=== PATIENT | male | born 1985 | race Caucasian/White ===

== ENCOUNTER 2018-12-01 19:55 | Emergency (ER) | payer OTHER, MEDICAID, SELFPAY ==
[2018-12-01 19:59] VITALS: BP 121/80; PULSE 92; RESP 22; TEMP 35.7; O2SAT 97
--- NOTE | 2018-12-02 03:53 | ED.BACK ---
HPI - Back Pain/Injury General Chief Complaint: Back Pain/Injury Stated Complaint: BACK PAIN History of Present Illness HPI Narrative: Patient left without being seen. Related Data Allergies Allergy/AdvReac Type Severity Reaction Status Date / Time bee venom protein (honey bee) Allergy Verified 12/01/18 20:04 PFSH Social History Smoking Status: Current every day smoker Social History Smoking Status: Current every day smoker Exam Initial Vital Signs Initial Vital Signs: Vital Signs Temperature 96.3 F L 12/01/18 19:59 Pulse Rate 92 H 12/01/18 19:59 Respiratory Rate 22 12/01/18 19:59 Blood Pressure 121/80 12/01/18 19:59 Pulse Oximetry 97 12/01/18 19:59 Course Vital Signs - 8 hr 12/01/18 19:59 Temperature 96.3 F L Pulse Rate 92 H Respiratory Rate 22 Blood Pressure 121/80 Pulse Oximetry 97 Discharge Plan Departure Patient Disposition: Home Clinical Impression: Patient left after triage Discharge Date/Time: 12/01/18 23:20 Interventions: ED Discharge Assessment Last Done: 12/01/18 23:22
== END 2018-12-01 23:20 | disposition home or self-care (01) ==
PROVIDERS: Emergency Provider Emergency Medicine
DX: M54.9 Dorsalgia, unspecified (principal)
CPT/HCPCS: 99282

== ENCOUNTER 2018-12-02 07:57 | Emergency (ER) | payer OTHER, MEDICAID, SELFPAY ==
--- NOTE | 2018-12-02 07:59 | ED_ITS ---
HPI - Back Pain/Injury General Chief Complaint: Back Pain/Injury Stated Complaint: back issue Time Seen by Provider: 12/02/18 07:58 Source: patient Mode of arrival: ambulatory Limitations: no limitations History of Present Illness HPI Narrative: 33-year-old male who was here in the emergency department last evening but left without being seen here for evaluation of 1.5 years of midback pain. Patient states he does not remember specific incident where his pain started however he thinks it was when he was helping a friend move. He has never been evaluated in the past for it. He states that it is in his mid back. Hurts when he moves and bends over. Has not been doing anything for this. Is here because he states that it is affecting his work. Related Data Allergies Allergy/AdvReac Type Severity Reaction Status Date / Time bee venom protein (honey bee) Allergy Verified 12/02/18 08:03 Review of Systems Constitutional Denies fever(s) and Denies headache(s) ENT Ears, Nose, Mouth, and Throat: Denies headache(s) and Denies disequilibrium Cardiovascular Denies chest pain and Denies dyspnea Respiratory Denies dyspnea Gastrointestinal Gastrointestinal: Denies abdominal pain, Denies nausea and Denies vomiting Genitourinary Denies dysuria Musculoskeletal Reports back pain, Denies myalgias, Denies arthralgias and Denies tingling Integumentary/Breasts Denies rash Neurologic Denies headache(s), Denies radicular pain, Denies tingling, Denies tremor(s) and Denies disequilibrium Hematologic/Lymphatic Denies easy bleeding and Denies easy bruising FORMERLY [facility] Medical History Patient denies medical problems (Acute) Social History Smoking Status: Current every day smoker Social History Smoking Status: Current every day smoker Exam Initial Vital Signs Initial Vital Signs: Vital Signs Temperature 98.6 F 12/02/18 08:03 Pulse Rate 99 H 12/02/18 08:03 Respiratory Rate 15 12/02/18 08:03 Blood Pressure 138/92 H 12/02/18 08:03 Pulse Oximetry 93 12/02/18 08:03 Const General: cooperative, comfortable, well developed, well groomed and No acute distress Orientation: alert, awake and oriented x3 HENMT Head: normal to inspection and normocephalic Resp Effort & Inspection: normal respiratory effort Auscultation: clear to auscultation bilaterally Cardio Rate: regular rate Rhythm: regular rhythm Back/Spine/Pelvis Cervical Spine: No cervical spinal tenderness Thoracic/Lumbar Spine: paraspinal tenderness, thoracic spinal tenderness and No lumbar spinal tenderness Skin Lesions: no lesions Rashes: no rashes Neuro General: alert and awake Cognition: normal cognition Speech: speech normal Gait: normal gait Extrem General: normal to inspection and capillary refill normal Psych Appearance: grossly normal and well kempt Course Orders Ordered: Discontinued Medications Ketorolac Tromethamine (Toradol) 30 mg IM NOW ONE Stop: 12/02/18 08:14 Vital Signs - 8 hr 12/02/18 08:03 Temperature 98.6 F Pulse Rate 99 H Respiratory Rate 15 Blood Pressure 138/92 H Pulse Oximetry 93 MDM - Back Pain/Injury MDM Narrative Medical decision making narrative: Patient has had 1.5 years of thoracic back pain which he has not done anything for prior to this. Low suspicion for fracture. It is thoracic area. Suspect musculoskeletal. He was given a shot of Toradol here in the ER. He was also given the phone number for the health client resource specialist to help him establish a primary provider. The to discuss the use of anti-inflammatories. No indication for radiologic studies. Patient expressed understanding and agreement Discharge Plan Departure Patient Disposition: Home Clinical Impression: Thoracic back pain Qualifiers: Chronicity: chronic Back pain laterality: bilateral Qualified Code(s): M54.6 - Pain in thoracic spine Instructions: DI for Thoracic Back Pain Activity Restrictions/Additional Instructions: I recommend you contact the health client resource specialist here at the hospital at [phone]. They can help you with establishing a primary provider which can help with further referral such as physical therapy or any other advanced imaging such as an MRI. Continue to use anti-inflammatories such as Motrin or Naprosyn. You can also use Tylenol. Also recommend stretching you can also use heat and ice. Stand Alone Forms: Work Release Note
[2018-12-02 08:03] VITALS: BP 138/92; PULSE 99; RESP 15; TEMP 37; O2SAT 93; BMI 24.1
--- NOTE | 2018-12-02 08:08 | PC.NURSE ---
Injured his back about 1.5yrs ago while lifting a sofa. Patient has had ongoing mid back pain. Worse with prolonged standing/walking and movement. Denies loss of bladder or bowel.
[2018-12-02] MEDS: KETOROLAC 60 MG/2 ML VIAL 30 MG IM (08:23)
== END 2018-12-02 08:35 | disposition home or self-care (01) ==
PROVIDERS: Emergency Provider Emergency Medicine
DX: M54.6 Pain in thoracic spine (principal)
CPT/HCPCS: 96372; 99282; 99283; J1885